=== PATIENT | male | born 1985 | race Caucasian/White ===

== ENCOUNTER 2018-04-11 18:44 | Emergency (ER) | payer OTHER ==
[~2018-04-11] VITALS: Ht 180.3 cm; Wt 72.6 kg
[2018-04-11] MEDS ORDERED: IBUPROFEN200 M1 PO (19:00)
[2018-04-11] MEDS ORDERED: ACETAMINOPHEN-1 EAC1 PO (19:34)
[2018-04-11] MEDS ORDERED: CEPHALEXIN500 MG PO (19:34)
== END 2018-04-11 19:42 | disposition home or self-care (01) ==
LOC: ED 18:44
DX: K08.89 Other specified disorders of teeth and supporting structures (principal)
CPT/HCPCS: 99282